=== PATIENT | female | born 1945 | race Caucasian/White ===

== ENCOUNTER → 2016-08-11 | Outpatient (CLI) | payer MEDICARE, OTHER ==
--- NOTE | 2016-08-11 10:30 | RADRPT ---
PROCEDURE: XR bilateral knees. CLINICAL INDICATION: Knee pain. TECHNIQUE: AP weightbearing, lateral weightbearing and sunrise views of each knee are available fo r review. COMPARISON: 01/26/2014 FINDINGS: There is a bilateral total knee replacements. There is no evidence of loosening of the prosthesis. T here is no evidence of hardware failure. The osseous structures are normal in mineralization, chun ecture and alignment No acute fracture or dislocation is seen.No osseous lesions are identified. Th e soft tissues are unremarkable . IMPRESSION: Unremarkable bilateral total knee replacements. RPTAT: [facility] .Rigo Leal MD, MD Date Time Electronically viewed and signed by .Rigo Leal MD, on 08/11/2016 10:29 .B/
== END | disposition home or self-care (01) ==
LOC: HKI 09:51
PROVIDERS: ATTEND Orthopaedic Surgery
DX: M25.561 Pain in right knee (principal); M25.562 Pain in left knee; Z96.653 Presence of artificial knee joint, bilateral
CPT/HCPCS: 73562; G0463

== ENCOUNTER → 2016-08-14 | Outpatient (CLI) | payer MEDICARE, OTHER ==
--- NOTE | 2016-08-14 13:37 | RADRPT ---
PROCEDURE: Three-phase bone scan study CLINICAL INDICATION: 71 -year-old patient with bilateral knee replacement, complaining of bilatera l knee pain. TECHNIQUE: Following the intravenous injection of 25.6 mCi of Tc-99m MDP, a three-phase bone scan study of the knees bilaterally was obtained. COMPARISON: No prior bone scan studies. X-ray of the knees bilaterally dated August 11, 2016. FINDINGS: Blood flow phase of the study demonstrates symmetrical distribution of activity in the knees bilater ally. Blood pooling images reveal symmetrical distribution of uptake in both knees. Delayed images of both knees demonstrate evidence of a bilateral knee replacement with mildly increa sed activity surrounding the prosthesis bilaterally, which is likely related to prior surgery. IMPRESSION: 1. Evidence of the bilateral replacement with likely postsurgical changes. 2. No other abnormal areas of increased uptake in the obtained limited views of both knees. RPTAT: HH .Sera Green MD, MD Date Time Electronically viewed and signed by .Sera Green MD, MD on 08/14/2016 13:37 .L/
== END | disposition home or self-care (01) ==
LOC: NUC 08:26
PROVIDERS: ATTEND Orthopaedic Surgery
DX: T84.84XA Pain due to internal orthopedic prosthetic devices, implants and grafts, initial encounter (principal); Y83.8 Other surgical procedures as the cause of abnormal reaction of the patient, or of later complication, without mention of misadventure at the time of the procedure; Z96.653 Presence of artificial knee joint, bilateral
CPT/HCPCS: 78315; A9503